=== PATIENT | female | born 1975 | race Caucasian/White ===

== ENCOUNTER 2016-07-23 19:40 | Emergency (ER) | payer OTHER ==
--- NOTE | 2016-07-23 21:37 | RAD ---
THREE VIEWS OF THE FIRST AND SECOND DIGIT LEFT FOOT 07/23/16 HISTORY: Post reduction of fracture. AP, lateral and oblique views first and second digits left foot is obtained. Again, fracture is seen in the proximal portion of the distal phalanx of the first digit. The dislocated fracture and dislocation at the PIP joint of the second digit has been reduced. It ap pears to be in good anatomic alignment. IMPRESSION: Reduction of dislocated PIP joint second digit left foot. POS: [place]
--- NOTE | 2016-07-23 22:36 | RAD ---
THREE VIEWS SECOND DIGIT LEFT FOOT 07/23/16 HISTORY: Hit by cow with bruising. AP, lateral and oblique views second digit left foot is obtained. There is subluxation of the PIP oliverio int second digit left foot. There also appears to be a fracture involving the volar articulating aquiles face of the proximal portion of the middle phalanx of the second digit. There is also fracture involving the distal phalanx extending into the interphalangeal joint of the first digit left foot. IMPRESSION: Fracture and subluxation of the second digit and fracture of the first digit left foot. POS: [facility]
== END 2016-07-23 22:00 | disposition home or self-care (01) ==
LOC: NAV ERS 19:40
DX: S92.422A Displaced fracture of distal phalanx of left great toe, initial encounter for closed fracture (principal); S93.115A Dislocation of interphalangeal joint of left lesser toe(s), initial encounter; I10 Essential (primary) hypertension; Z87.891 Personal history of nicotine dependence; W55.22XA Struck by cow, initial encounter
CPT/HCPCS: 28660